=== PATIENT | female | born 1980 | race Caucasian/White ===

== ENCOUNTER 2017-01-21 11:03 | Emergency (ER) | payer OTHER ==
[~2017-01-21] VITALS: Ht 149.9 cm; Wt 74.8 kg
[~2017-01-21 11:03] MED LIST: ASACOL HD800 MG PO; DICYCLOMINE HCL10 MG PO; NAPRELAN500 MG PO; NEXPLANON68 MG SUB-Q; VIVELLE-DOT1 EAC1 TD
[2017-01-21] MEDS ORDERED: ONDANSETRON ODT4 MG PO (17:02)
[2017-01-21] MEDS ORDERED: LEVAQUIN750 MG PO (17:02)
== END 2017-01-21 17:17 | disposition home or self-care (01) ==
LOC: ED 11:03
DX: K52.9 Noninfective gastroenteritis and colitis, unspecified (principal); D72.829 Elevated white blood cell count, unspecified; F17.200 Nicotine dependence, unspecified, uncomplicated; Z88.8 Allergy status to other drugs, medicaments and biological substances; Z79.899 Other long term (current) drug therapy
CPT/HCPCS: 74177; 80053; 81001; 82150; 83690; 85025; 85610; 85651; 85730; 87077; 87088; 87186; 96361; 96365; 96375; 99284; J1885; J1956; J2405; J7120; Q9967

== ENCOUNTER 2017-12-23 13:36 | Emergency (ER) | payer OTHER ==
[~2017-12-23] VITALS: Ht 149.9 cm; Wt 74.8 kg
[~2017-12-23 13:36] MED LIST changes: +LEVAQUIN750 MG PO; +ONDANSETRON ODT4 MG PO
[2017-12-23] MEDS ORDERED: OMEPRAZOLE20 M1 PO (13:59)
== END 2017-12-23 14:02 | disposition home or self-care (01) ==
LOC: ED 13:36
DX: K08.89 Other specified disorders of teeth and supporting structures (principal); F17.200 Nicotine dependence, unspecified, uncomplicated

== ENCOUNTER 2025-02-21 06:53 | Day surgery (SDC) | payer OTHER ==
[~2025-02-21] VITALS: Ht 149.9 cm; Wt 88.0 kg
[~2025-02-21 06:53] MED LIST changes: +LACTATED RINGER'S 1,000 ML IV SCH; +LEVOTHYROXINE75 MC1 PO; +OMEPRAZOLE20 M1 PO; +PROZAC20 MG PO
[2025-02-21] MEDS ORDERED: IBLOOD GLUCOSE TEST STRIP 1 EA TEST VI PRN (07:00)
[2025-02-21] MEDS ORDERED: LIDOCAINE HCL 1% 5 ML SDV INJ ONE (07:00)
[2025-02-21 07:04] VITALS: BP 161/82
[2025-02-21] MEDS ORDERED: LIDOCAINE HCL 2% 5 ML SDV ONE (07:15)
[2025-02-21] MEDS ORDERED: VENTOLIN HFA18 GM INH (07:27)
--- NOTE | 2025-02-21 09:34 | NUR ---
02/21/25 0934 Janie Miller 0915- PT PRESENTS TO PACU, LEFT LATERAL POSITION, NON REACTIVE TO STIMULUS. LR INFUSING TO RH IV, BREATHING EVEN AND NON LABORED, PT 90% ON ROOM AIR, O2 PLACED AT 2L PER NC. INTERMITTENT SNORING. ABD ROUND, FIRM. ALL MONITORS IN PLACE. 30- PT WAKES ON OWN, REORIENTED TO TIME AND PLACE. ENCOURAGED TO PASS GAS. PT DENIES PAIN OR NAUSEA. PT ABLE TO PASS SOME GAS. MOVED TO ROOM AIR. WILL CONTINUE TO MONITOR.
[2025-02-21 09:59] VITALS: BP 161/87
--- NOTE | 2025-02-22 18:02 | OR ---
[facility] [address], [place] [address] Signed DATE OF OPERATION: 02/21/2025 SURGEON: Yann Toure DO PREOPERATIVE DIAGNOSIS: Colon cancer screening. POSTOPERATIVE DIAGNOSIS: Colon cancer screening with colon polyps at 40 cm, 70 cm and 105 cm. PROCEDURE PERFORMED: Colonoscopy with cold forceps biopsy of the polyps at 40 cm, 70 cm, and 105 cm. ANESTHESIA: IV sedation. ESTIMATED BLOOD LOSS: None. DRAINS: None. COMPLICATIONS: None. DESCRIPTION OF PROCEDURE: The patient was brought to the GI lab, placed in the supine position. After induction of IV sedation, the patient was placed in left lateral position, padded to the satisfaction of anesthesia. Olympus video colonoscope was then introduced into the rectum and while under direct visualization and insufflation, the scope was then advanced from the rectosigmoid, sigmoid colon, descending colon, transverse colon, ascending colon into the cecum. The colon was insufflated and inspection of the mucosal surfaces was then carried out. The cecum had no intrinsic or extrinsic masses, no lesions or ulceration noted. At approximately 105 cm in the ascending colon, a flat broad-based polyp was identified. Using the cold biopsy forceps, multiple biopsies were taken, passed off the field for pathologic review. Satisfactory hemostasis was maintained. The scope was brought back into the transverse colon. No intrinsic or extrinsic masses, no lesions or ulceration were appreciated. The scope was brought back past the splenic flexure into the descending colon and at approximately 70 cm, a flat broad-based polyp was identified. Multiple biopsies were taken utilizing cold biopsy Electronically Signed By: YANN TOURE DO 02/22/25 1802 PATIENT NAME: MK KING OPERATIVE REPORT DATE OF : 80 REPORT #: [id number] PHYSICIAN: YANN TOURE DO PCP: SHANNAN VAZQUEZ PA-C REPORT IS CONFIDENTIAL AND NOT TO BE RELEASED WITHOUT AUTHORIZATION [facility] [address], [place] [address] Signed forceps. This was passed off the field for pathologic review. No other intrinsic or extrinsic masses were noted in the descending colon. The scope was then brought back to the sigmoid colon and at approximately 40 cm, a flat broad-based polyp was identified. Multiple biopsies of the cold forceps were then taken, passed off the field for pathologic review. Satisfactory hemostasis was maintained. The remainder of rectosigmoid and the sigmoid colon was essentially unremarkable with no intrinsic or extrinsic masses appreciated. The scope was withdrawn. The patient tolerated the procedure well, went to recovery room in satisfactory condition. Yann Toure DO RS/VERONICAL /[id number] Copies: ~ Electronically Signed By: YANN TOURE DO 02/22/25 1802 PATIENT NAME: MK KING OPERATIVE REPORT DATE OF : 80 REPORT #: [id number] PHYSICIAN: YANN TOURE DO PCP: SHANNAN VAZQUEZ PA-C REPORT IS CONFIDENTIAL AND NOT TO BE RELEASED WITHOUT AUTHORIZATION
--- NOTE | 2025-02-26 10:51 | PATH ---
[facility] [address] [place], [place] [address] Signed SPECIMEN(S): A POLYP AT 105 CM SPECIMEN(S): B POLYP AT 70 CM SPECIMEN(S): C POLYP AT 40 CM SPECIMEN SOURCE: A. POLYP AT 105 CM B. POLYP AT 70 CM C. POLYP AT 40 CM CLINICAL HISTORY: Screening. Postop: Polyps. FINAL PATHOLOGIC DIAGNOSIS: A. Polyp at 105 cm: - Morphologic features consistent with lymphocytic colitis. See comment - Focal reactive hyperplastic changes. - Negative for dysplasia. B. Polyp at 70 cm: - Morphologic features consistent with lymphocytic colitis. - Negative for dysplasia. C. Polyp at 40 cm: - Morphologic features consistent with lymphocytic colitis. - Negative for dysplasia. COMMENT: All colon biopsies show increased number of inflammatory cells within the lamina propria composed of lymphocytes, eosinophils and plasma cells with a marked increase in intraepithelial lymphocytes as confirmed by stain for CD3. Findings are consistent with lymphocytic colitis. NA MICROSCOPIC EXAMINATION: Histologic sections of all submitted blocks are examined by light microscopy. These findings, together with the gross examination, support the pathologic diagnosis. Immunohistochemical stain for CD3 is performed on blocks A, B and C and 8 highlights markedly increased number of intraepithelial lymphocytes consistent with the above diagnosis. Control slide stained appropriately. NA PATIENT NAME: MK KING PATHOLOGY DATE OF : 80 REPORT #: [id number] PHYSICIAN: [facility] PATHOLOGY PCP: SHANANN VAZQUEZ PA-C REPORT IS CONFIDENTIAL AND NOT TO BE RELEASED WITHOUT AUTHORIZATION [facility] [address] [place], [place] [address] Signed GROSS DESCRIPTION: A. The specimen, labeled and designated "Bar, V, 1. " and designated on the requisition "105 cm polypectomy," is received in formalin and consists of two martinez soft tissue fragments that measure each is 0.4 cm in greatest dimension. The specimen is entirely submitted in (A1). B. The specimen, labeled and designated "Bar, V, 2. " and designated on the requisition "70 cm polypectomy," is received in formalin and consists of one martinez soft tissue fragment that is 0.7 cm in greatest dimension. The specimen is entirely submitted in (B1). C. The specimen, labeled and designated "Bar, V, 3. " and designated on the requisition "40 cm polypectomy," is received in formalin and consists of one martinez soft tissue fragment that is 0.8 cm in greatest dimension. The specimen is entirely submitted in (C1). FB (under the direct supervision of a pathologist) The Gross Description was prepared using a voice recognition system. The report was reviewed for accuracy; however, sound-alike word errors, addition and/or deletions may occur. If there is any question about this report, please contact Client Services. ADDITIONAL NOTES: Immunohistochemical and/or in situ hybridization studies if performed in this case included appropriate positive controls that reacted as expected. This test was developed and its performance characteristics determined by [facility]. It has not been cleared or approved by the U.S. Food and Drug Administration. The FDA has determined that such clearance or approval is not necessary. This test is used for clinical purposes. It should not be regarded as investigational or for research. [facility] is certified under the Clinical Laboratory Improvement Amendments of 1988 (CLIA) as qualified to perform high complexity clinical laboratory testing. PERFORMING LABORATORY: Technical component was performed by [facility], [address] [place] [id number] (CLIA# [id number]). [facility], [address] [place] [id number] (CLIA#: [id number]). Diagnostician: Shanelle Cadet MD Pathologist Electronically Signed 02/26/2025 PATIENT NAME: MK KING PATHOLOGY DATE OF : 80 REPORT #: [id number] PHYSICIAN: PR[facility] PATHOLOGY PCP: SHANNAN VAZQUEZ PA-C REPORT IS CONFIDENTIAL AND NOT TO BE RELEASED WITHOUT AUTHORIZATION [address] [address] Signed Copies: ~ PATIENT NAME: MK KING PATHOLOGY DATE OF : 80 REPORT #: [id number] PHYSICIAN: [facility] PCP: SHANNAN VAZQUEZ PA-C REPORT IS CONFIDENTIAL AND NOT TO BE RELEASED WITHOUT AUTHORIZATION
== END 2025-02-21 10:10 | disposition home or self-care (01) ==
LOC: OPS 06:53 → DS 06:53 → OPS 08:10 → DS 08:10 → OPS 09:40
PROVIDERS: ATTEND Surgery
PROC: 0DBL8ZZ Excision of Transverse Colon, Via Natural or Artificial Opening Endoscopic (ICD-10-PCS; 2025-02-21)
PROC: 0DBN8ZZ Excision of Sigmoid Colon, Via Natural or Artificial Opening Endoscopic (ICD-10-PCS; 2025-02-21)
PROC: 0DBM8ZZ Excision of Descending Colon, Via Natural or Artificial Opening Endoscopic (ICD-10-PCS; principal; 2025-02-21 08:10)
DX: Z12.11 Encounter for screening for malignant neoplasm of colon (principal); K52.832 Lymphocytic colitis; K63.5 Polyp of colon; K51.019 Ulcerative (chronic) pancolitis with unspecified complications; F33.9 Major depressive disorder, recurrent, unspecified; F17.210 Nicotine dependence, cigarettes, uncomplicated; Z79.899 Other long term (current) drug therapy; Z88.8 Allergy status to other drugs, medicaments and biological substances; Z91.011 Allergy to milk products
CPT/HCPCS: 00812; 88305; 88342; J2003; J2704; J7121